=== PATIENT | female | born 1985 | race African-American/Black ===

== ENCOUNTER 2017-04-17 13:39 | Emergency (ER) | payer BC ==
--- NOTE | 2017-04-17 14:42 | RAD ---
RIGHT HIP TWO VIEWS: History: Fall with injury to hip. FINDINGS: Femoral neck is normally maintained and normally positioned. No evidence of fracture. No osseous abno rmality is seen. IMPRESSION: No acute abnormality identified. POS: [facility]
--- NOTE | 2017-04-17 14:43 | RAD ---
AP PELVIS: History: Fall with injury to hip and pelvis. FINDINGS: No evidence of fracture. Both hips appear intact. Bony pelvis is intact. IMPRESSION: No acute finding. POS: [facility]
--- NOTE | 2017-04-17 14:44 | RAD ---
LUMBAR SPINE THREE VIEWS: Date: 04-17-17 Comparison: None. History: Low back pain and hip pain, fall. FINDINGS: Five lumbar type vertebral bodies are present with intact pedicles on frontal imaging. Lumbar vertebr al body height and alignment appears within normal limits. No acute osseous abnormality. IMPRESSION: No acute findings. POS: [facility]
== END 2017-04-17 14:55 | disposition home or self-care (01) ==
LOC: SCSER 13:39
DX: S39.012A Strain of muscle, fascia and tendon of lower back, initial encounter (principal); S30.0XXA Contusion of lower back and pelvis, initial encounter; W10.9XXA Fall (on) (from) unspecified stairs and steps, initial encounter
CPT/HCPCS: 72100; 72170